=== PATIENT | male | born 1970 | race Two or more races ===

== ENCOUNTER 2019-04-12 22:15 | Emergency (ER) | payer SELFPAY ==
[~2019-04-12] VITALS: Ht 170.2 cm; Wt 82.3 kg
[2019-04-12 22:19] VITALS: Ht 170.2 cm; Wt 82.3 kg
[2019-04-12] MEDS ORDERED: COZAAR50 MG PO (22:20)
[2019-04-12] MEDS ORDERED: OMEPRAZOLE20 M1 PO (22:20)
[2019-04-12 22:44] LABS: BASOPHILS 0.6 % (0-2); EOSINOPHILS 1.5 % (0-7); HEMATOCRIT 48.1 % (42.0-54.0); IMMATURE GRANULOCYTES 0.1 % (0-5); MCH 31.9 pg (26.0-34.0); MCHC 35.3 g/dL (31.0-37.0); MCV 90.2 fL (80.0-100.0); MEAN PLATELET VOLUME 12.1 fL (7.4-10.4); MONOCYTES 9.8 % (2-11); PLATELET COUNT 166 10x3/uL (130-400); RBC 5.33 10x6/uL (4.20-6.10); RDW 12.3 % (11.5-14.5); WBC 6.9 10x3/uL (4.8-10.8)
[2019-04-12 23:04] LABS: ALBUMIN 4.4 g/dL (3.4-5.0); ALKALINE PHOSPHATASE 89 U/L (46-116); ALT (SGPT) 41 U/L (10-68); BILIRUBIN - TOTAL 0.76 mg/dL (0.2-1.3); CALC OSMOLALITY 278 mosm/kg (275-300); CALCIUM 8.7 mg/dL (8.5-10.1); CARBON DIOXIDE 27.6 mmol/L (21.0-32.0); CHLORIDE - SERUM 104 mmol/L (98-107); CREATININE - SERUM 0.8 mg/dL (0.6-1.3); GLUCOSE 100 mg/dL (74-106); POTASSIUM - SERUM 4.1 mmol/L (3.5-5.1); PROTEIN - SERUM 8.4 g/dL (6.4-8.2); SODIUM 140 mmol/L (136-145); UREA NITROGEN 13 mg/dL (7-18); eGFR NON AFRICAN AMERICAN > 90 mL/min (90-120)
[2019-04-12 23:14] LABS: AMYLASE - SERUM 56 U/L (25-115); CKMB 2.4 U/L (0.0-3.6); CREATINE KINASE 522 UL (21-232); LIPASE 187 U/L (73-393)
[2019-04-12 23:15] LABS: TROPONIN-I < 0.017 ng/mL (0.000-0.060)
[2019-04-12] MEDS ORDERED: CARAFATE1 G/10 ML PO (23:55)
[2019-04-12] MEDS ORDERED: OMEPRAZOLE40 MG PO (23:55)
[2019-04-13] VITALS: BP 181/99
== END 2019-04-13 00:21 | disposition home or self-care (01) ==
LOC: D.ER 22:15
PROVIDERS: Family Medicine
DX: R07.9 Chest pain, unspecified (principal); K20.9 Esophagitis, unspecified